=== PATIENT | male | born 1965 | race Caucasian/White ===

== ENCOUNTER 2017-05-20 15:39 | Emergency (ER) | payer MEDICAID, OTHER ==
[2017-05-20] MEDS: ONDANSETRON (ODT) 4 MG TAB ODT (17:46)
[2017-05-20] MEDS: HYDROmorphONE 2 MG/ML SYG IM (17:46)
[2017-05-20] MEDS: morphine 4 MG/ML VIAL IV (19:13)
[2017-05-20] MEDS: ONDANSETRON 4 MG INJ IV (19:13)
[2017-05-20] MEDS: SOD CHLORIDE 0.9% 1,000 ML IV (19:14)
[2017-05-20 19:20] LABS: ADD MAN DIFF? NO
[2017-05-20] MEDS: CIPROFLOXACIN 400MG/D5W 200 ML IVPB (19:20)
[2017-05-20 19:25] LABS: WHITE BLOOD COUNT 18.9 10^3/ul (4.8-10.8)
[2017-05-20 19:25] LABS: BASOPHIL # 0.1 10^3/ul (0.0-0.1); BASOPHILS % 0.3 % (0.0-2.0); EOSINOPHILS # 0.1 10^3/ul (0.0-0.5); EOSINOPHILS % 0.6 % (0.0-7.0); HEMATOCRIT 41.6 % (42.0-52.0); HEMOGLOBIN 14.4 g/dl (14.0-18.0); LYMPHOCYTES # 2.4 10^3/ul (0.8-2.9); LYMPHOCYTES % 12.6 % (15.0-51.0); MEAN CORPUSCULAR HGB CONC 34.6 g/dl (32.0-37.0); MEAN CORPUSCULAR VOLUME 86.7 fl (82.0-101.0); MEAN PLATELET VOLUME 9.7 fl (7.4-10.4); MONOCYTE # 1.3 10^3/ul (0.3-0.9); NEUTROPHIL # 14.8 10^3/ul (1.6-7.5); NEUTROPHILS % 78.2 % (39.0-77.0); PLATELET COUNT 457 10^3/UL (140-415)
[2017-05-20 19:29] LABS: ADD UMIC NO; UR ASCORBIC ACID NEGATIVE (NEGATIVE); UR BACTERIA FEW /HPF (NONE SEEN); UR BILIRUBIN (Dip) NEGATIVE (NEGATIVE); UR BLOOD (Dip) NEGATIVE (NEGATIVE); UR CLARITY SLIGHTLY CLOUDY (CLEAR); UR COLOR YELLOW (YELLOW); UR GLUCOSE (Dip) 3+ mg/dL (NEGATIVE); UR KETONES (Dip) TRACE mg/dL (NEGATIVE); UR LEUKOCYTE ESTERASE (Dip) NEGATIVE Leu/ul (NEGATIVE); UR MUCUS FEW /HPF (NONE SEEN); UR NITRITE (Dip) NEGATIVE (NEGATIVE); UR RBC 1 /HPF (0-5); UR SPECIFIC GRAVITY (Dip) 1.038 (1.003-1.030); UR SQUAMOUS EPITHELIAL CELL FEW /HPF (FEW); UR TOTAL PROTEIN (Dip) NEGATIVE (NEGATIVE); UR UROBILINOGEN (Dip) NEGATIVE (NEGATIVE); UR WBC 2 /HPF (0-5)
[2017-05-20 19:39] LABS: INR 0.95; PROTIME 12.8 Sec (11.9-14.9)
[2017-05-20 19:40] LABS: PARTIAL THROMBOPLASTIN TIME 24.9 Sec (25.0-35.0)
[2017-05-20 19:50] LABS: ALANINE AMINOTRANSFERASE 36 IU/L (13-69); ALBUMIN 3.5 g/dl (3.3-4.9); ALKALINE PHOSPHATASE 127 IU/L (42-121); ANION GAP 16 (8-16); ASPARTATE AMINO TRANSFERASE 22 IU/L (15-46); BLOOD UREA NITROGEN 16 mg/dl (7-20); CALCIUM 9.5 mg/dl (8.4-10.2); CARBON DIOXIDE 28 mmol/L (21-31); CHLORIDE 94 mmol/L (97-110); CREATININE 0.57 mg/dl (0.61-1.24); GLUCOSE 363 mg/dl (70-220); POTASSIUM 4.5 mmol/L (3.5-5.1); SODIUM 133 mmol/L (135-144)
[2017-05-20] MEDS: IOHEXOL 300MG/ML 150 ML BTL (20:46)
[2017-05-20] MEDS: SOD CHLORIDE 0.9% 100 ML (20:46)
== END 2017-05-20 23:36 | disposition home or self-care (01) ==
LOC: FTE 15:39
DX: K40.90 Unilateral inguinal hernia, without obstruction or gangrene, not specified as recurrent (principal); N45.1 Epididymitis; R07.9 Chest pain, unspecified
CPT/HCPCS: 74177; 76870; 80053; 81001; 81003; 85025; 85610; 85730; 87086; 96372; 96374; 96375; 99285-25

== ENCOUNTER 2017-05-25 13:06 | Inpatient (IN) | payer MEDICAID ==
[2017-05-25] MEDS: HYDROCODONE/APAP (10/325) TAB PO (20:48)
[2017-05-25 21:28] LABS: ADD MAN DIFF? NO
[2017-05-25 21:30] LABS: BASOPHILS % 0.3 % (0.0-2.0); EOSINOPHILS # 0.3 10^3/ul (0.0-0.5); EOSINOPHILS % 2.1 % (0.0-7.0); HEMATOCRIT 43.8 % (42.0-52.0); HEMOGLOBIN 14.8 g/dl (14.0-18.0); LYMPHOCYTES # 2.4 10^3/ul (0.8-2.9); LYMPHOCYTES % 19.3 % (15.0-51.0); MEAN CORPUSCULAR HEMOGLOBIN 29.7 pg (29.0-33.0); MEAN CORPUSCULAR HGB CONC 33.8 g/dl (32.0-37.0); MEAN CORPUSCULAR VOLUME 87.8 fl (82.0-101.0); MEAN PLATELET VOLUME 9.5 fl (7.4-10.4); MONOCYTE # 0.8 10^3/ul (0.3-0.9); MONOCYTES % 6.7 % (0.0-11.0); NEUTROPHIL # 8.9 10^3/ul (1.6-7.5); NEUTROPHILS % 70.3 % (39.0-77.0); PLATELET COUNT 603 10^3/UL (140-415); RED BLOOD COUNT 4.99 10^6/ul (4.70-6.10); RED CELL DISTRIBUTION WIDTH 11.8 % (11.5-14.5)
[2017-05-25 21:30] LABS: WHITE BLOOD COUNT 12.6 10^3/ul (4.8-10.8)
[2017-05-25 21:50] LABS: ALANINE AMINOTRANSFERASE 35 IU/L (13-69); ALBUMIN 3.9 g/dl (3.3-4.9); ALKALINE PHOSPHATASE 121 IU/L (42-121); ANION GAP 13 (8-16); ASPARTATE AMINO TRANSFERASE 22 IU/L (15-46); BLOOD UREA NITROGEN 14 mg/dl (7-20); CALCIUM 9.9 mg/dl (8.4-10.2); CARBON DIOXIDE 32 mmol/L (21-31); CHLORIDE 96 mmol/L (97-110); CREATININE 0.54 mg/dl (0.61-1.24); GLUCOSE 306 mg/dl (70-220); POTASSIUM 4.2 mmol/L (3.5-5.1); SODIUM 137 mmol/L (135-144); TOTAL PROTEIN 8.2 g/dl (6.1-8.1)
[2017-05-25] MEDS: CEFTRIAXONE 250 MG INJ IM (22:59)
[2017-05-26] MEDS: IOHEXOL 300MG/ML 150 ML BTL (00:39)
[2017-05-26] MEDS: SOD CHLORIDE 0.9% 100 ML (00:39)
[2017-05-26 01:29] LABS: ADD UMIC NO; UR ASCORBIC ACID NEGATIVE (NEGATIVE); UR BILIRUBIN (Dip) NEGATIVE (NEGATIVE); UR BLOOD (Dip) NEGATIVE (NEGATIVE); UR CLARITY CLEAR (CLEAR); UR COLOR STRAW (YELLOW); UR GLUCOSE (Dip) 3+ mg/dL (NEGATIVE); UR KETONES (Dip) NEGATIVE (NEGATIVE); UR LEUKOCYTE ESTERASE (Dip) NEGATIVE Leu/ul (NEGATIVE); UR NITRITE (Dip) NEGATIVE (NEGATIVE); UR SPECIFIC GRAVITY (Dip) > 1.060 (1.003-1.030); UR TOTAL PROTEIN (Dip) NEGATIVE (NEGATIVE); UR UROBILINOGEN (Dip) NEGATIVE (NEGATIVE)
[2017-05-26] MEDS: DOXYCYCLINE 100 MG TAB PO ×3 (01:59→20:13)
[2017-05-26] MEDS: ONDANSETRON 4 MG INJ IV (02:47)
[2017-05-26] MEDS ORDERED: BISACODYL (EC) 5 MG TAB PO (04:00)
[2017-05-26] MEDS ORDERED: DOCUSATE SODIUM 100 MG CAP PO (04:00)
[2017-05-26] MEDS ORDERED: NACL 0.9% 3 ML SYG IV (04:00)
[2017-05-26] MEDS: LEVOFLOXACIN 500MG/D5W (PMX) 100 ML IVPB (04:02)
[2017-05-26] MEDS: SOD CHLORIDE 0.9% 1,000 ML IV ×2 (06:38→13:31)
[2017-05-26 08:24] LABS: ADD MAN DIFF? NO
[2017-05-26 08:29] LABS: BASOPHIL # 0.1 10^3/ul (0.0-0.1); BASOPHILS % 0.4 % (0.0-2.0); EOSINOPHILS # 0.2 10^3/ul (0.0-0.5); EOSINOPHILS % 1.4 % (0.0-7.0); HEMATOCRIT 39.7 % (42.0-52.0); HEMOGLOBIN 13.6 g/dl (14.0-18.0); LYMPHOCYTES # 1.6 10^3/ul (0.8-2.9); LYMPHOCYTES % 11.8 % (15.0-51.0); MEAN CORPUSCULAR HEMOGLOBIN 29.8 pg (29.0-33.0); MEAN CORPUSCULAR HGB CONC 34.3 g/dl (32.0-37.0); MEAN CORPUSCULAR VOLUME 87.1 fl (82.0-101.0); MEAN PLATELET VOLUME 9.6 fl (7.4-10.4); MONOCYTE # 0.9 10^3/ul (0.3-0.9); MONOCYTES % 6.6 % (0.0-11.0); NEUTROPHILS % 78.8 % (39.0-77.0); PLATELET COUNT 571 10^3/UL (140-415); RED BLOOD COUNT 4.56 10^6/ul (4.70-6.10); RED CELL DISTRIBUTION WIDTH 11.8 % (11.5-14.5)
[2017-05-26 08:29] LABS: WHITE BLOOD COUNT 13.9 10^3/ul (4.8-10.8)
[2017-05-26 08:54] LABS: ALANINE AMINOTRANSFERASE 38 IU/L (13-69); ALBUMIN 3.5 g/dl (3.3-4.9); ALBUMIN/GLOBULIN RATIO 0.89; ALKALINE PHOSPHATASE 107 IU/L (42-121); ANION GAP 14 (8-16); ASPARTATE AMINO TRANSFERASE 30 IU/L (15-46); BLOOD UREA NITROGEN 14 mg/dl (7-20); CALCIUM 9.4 mg/dl (8.4-10.2); CARBON DIOXIDE 29 mmol/L (21-31); CHLORIDE 97 mmol/L (97-110); CHOL/HDL RATIO 8.1 RATIO; CHOLESTEROL 195 mg/dl (100-200); CREATININE 0.52 mg/dl (0.61-1.24); GLUCOSE 317 mg/dl (70-220); HDL CHOLESTEROL 24 mg/dl (28-71); LDL CHOLESTEROL,CALCULATED 143 mg/dl; MAGNESIUM 1.7 mg/dl (1.7-2.5); POTASSIUM 4.3 mmol/L (3.5-5.1); SODIUM 136 mmol/L (135-144); TOTAL PROTEIN 7.4 g/dl (6.1-8.1); TRIGLYCERIDES 140 mg/dl (0-149)
[2017-05-26 09:14] LABS: ADD UMIC NO; UR ASCORBIC ACID NEGATIVE (NEGATIVE); UR BILIRUBIN (Dip) NEGATIVE (NEGATIVE); UR BLOOD (Dip) NEGATIVE (NEGATIVE); UR CLARITY CLEAR (CLEAR); UR COLOR YELLOW (YELLOW); UR GLUCOSE (Dip) 3+ mg/dL (NEGATIVE); UR KETONES (Dip) NEGATIVE (NEGATIVE); UR LEUKOCYTE ESTERASE (Dip) NEGATIVE Leu/ul (NEGATIVE); UR NITRITE (Dip) NEGATIVE (NEGATIVE); UR SPECIFIC GRAVITY (Dip) > 1.060 (1.003-1.030); UR TOTAL PROTEIN (Dip) NEGATIVE (NEGATIVE); UR UROBILINOGEN (Dip) NEGATIVE (NEGATIVE)
[2017-05-26 09:19] LABS: CARCINOEMBRYONIC ANTIGEN 0.9 ng/ml (0.0-5.0)
[2017-05-26 09:20] LABS: THYROID STIMULATING HORMONE 0.939 MIU/L (0.465-4.680)
[2017-05-26 09:36] LABS: HIV 1&2 ANTIBODY NEGATIVE (NEGATIVE)
[2017-05-26] MEDS: morphine 2 MG INJ IV ×3 (09:48→20:02)
[2017-05-26] MEDS ORDERED: GLUCOSE GEL 15 GRAM TUBE BUCCAL (20:00)
[2017-05-26] MEDS ORDERED: GLUCOSE GEL 15 GRAM TUBE PO ×2 (20:00)
[2017-05-26] MEDS ORDERED: DEXTROSE 50% 50 ML SYRINGE IV ×2 (20:00)
[2017-05-26] MEDS ORDERED: GLUCAGON 1 MG INJ IM (20:00)
[2017-05-26] MEDS: INSULIN ASPART [NOVOLOG] 3 ML PEN SC (20:10)
[2017-05-27] MEDS: ACCU-CHEK XX (01:35)
[2017-05-27] MEDS: INSULIN ASPART [NOVOLOG] 3 ML PEN SC ×7 (01:40→20:22)
[2017-05-27] MEDS: morphine 2 MG INJ IV ×2 (05:34→11:15)
[2017-05-27] MEDS: LEVOFLOXACIN 750 MG TABLET PO (05:34)
[2017-05-27 07:48] LABS: HEMOGLOBIN A1C 10.9 % (0-5.9)
[2017-05-27] MEDS: DOXYCYCLINE 100 MG TAB PO ×2 (08:59→20:24)
[2017-05-27] MEDS: INSULIN GLARGINE [LANtus] 3 ML PEN SC (11:55)
[2017-05-27] MEDS: morphine LIQ (10 MG/5 ML) CUP PO ×2 (16:14→20:56)
[2017-05-27 17:22] LABS: PSA, FREE 0.1 ng/mL
[2017-05-27 19:06] LABS: INR 0.96; PROTIME 12.9 Sec (11.9-14.9)
[2017-05-27 19:37] LABS: PARTIAL THROMBOPLASTIN TIME 27.2 Sec (25.0-35.0)
[2017-05-28] MEDS: SOD CHLORIDE 0.9% 1,000 ML IV ×2 (00:05→12:15)
[2017-05-28] MEDS: INSULIN ASPART [NOVOLOG] 3 ML PEN SC ×9 (00:14→20:32)
[2017-05-28] MEDS: ACCU-CHEK XX (01:55)
[2017-05-28] MEDS: morphine LIQ (10 MG/5 ML) CUP PO ×4 (01:55→16:23)
[2017-05-28] MEDS: LEVOFLOXACIN 750 MG TABLET PO (05:59)
[2017-05-28] MEDS: DOXYCYCLINE 100 MG TAB PO ×2 (08:18→20:28)
[2017-05-28] MEDS: INSULIN GLARGINE [LANtus] 3 ML PEN SC (08:35)
[2017-05-28] MEDS: LIDOCAINE 1% (MDV) 20 ML INJ (17:55)
[2017-05-28] MEDS: FENTAnyl 50 MCG/ML VIAL (17:56)
[2017-05-28] MEDS: DIPHENHYDRAMINE 50 MG INJ (17:56)
[2017-05-28] MEDS: ACETAMINOPHEN 325 MG TAB PO (19:53)
[2017-05-29] MEDS: ACCU-CHEK XX (02:10)
[2017-05-29] MEDS: ACETAMINOPHEN 325 MG TAB PO (04:30)
[2017-05-29] MEDS: LEVOFLOXACIN 750 MG TABLET PO (05:21)
[2017-05-29] MEDS: ONDANSETRON 4 MG INJ IV ×2 (07:54→22:23)
[2017-05-29] MEDS: DOXYCYCLINE 100 MG TAB PO ×2 (07:54→22:20)
[2017-05-29] MEDS: INSULIN ASPART [NOVOLOG] 3 ML PEN SC ×7 (08:11→21:20)
[2017-05-29] MEDS: INSULIN GLARGINE [LANtus] 3 ML PEN SC (08:11)
[2017-05-30] MEDS: ACCU-CHEK XX (02:03)
[2017-05-30] MEDS: LEVOFLOXACIN 750 MG TABLET PO (05:44)
[2017-05-30] MEDS: morphine LIQ (10 MG/5 ML) CUP PO ×2 (08:42→14:55)
[2017-05-30] MEDS: INSULIN ASPART [NOVOLOG] 3 ML PEN SC ×4 (09:00→12:27)
[2017-05-30] MEDS: INSULIN GLARGINE [LANtus] 3 ML PEN SC (09:02)
[2017-05-30] MEDS: DOXYCYCLINE 100 MG TAB PO (09:02)
[2017-05-30 12:26] LABS: C-PEPTIDE 3.07 ng/mL (0.80-3.85)
== END 2017-05-30 16:30 | disposition home or self-care (01) | DRG 728 ==
LOC: MS2 05-26 02:06 → FTE 13:06
PROC: 0J9C3ZX Drainage of Pelvic Region Subcutaneous Tissue and Fascia, Percutaneous Approach, Diagnostic (ICD-10-PCS; principal; 2017-05-28)
DX: N49.0 Inflammatory disorders of seminal vesicle (principal); E11.65 Type 2 diabetes mellitus with hyperglycemia; N43.3 Hydrocele, unspecified; B96.20 Unspecified Escherichia coli [E. coli] as the cause of diseases classified elsewhere; Z79.4 Long term (current) use of insulin
CPT/HCPCS: 36415; 74176; 74177; 76870; 77012; 80053; 80061; 81003; 82378; 82962; 83036; 83735; 84153; 84154; 84443; 84681; 85025; 85610; 85730; 86337; 86703; 87070; 87075; 87086; 87591; 96372; 96374; 96375; 99285-25